=== PATIENT | female | born 1975 | race African-American/Black ===

== ENCOUNTER 2022-02-07 04:35 | Day surgery (SDC) | payer BC, OTHER ==
[2022-02-06 10:30] VITALS: BMI 37.5
[2022-02-07] MEDS ORDERED: PROPOFOL 40 ML ONE (10:18)
[2022-02-07] MEDS ORDERED: MIDAZOLAM HCL 2 MG/2 ML SINGLE DOSE VIAL ONE (10:18)
[2022-02-07] MEDS ORDERED: oxyCODONE HCL 5 MG TABLET PO PRN ×2 (11:23→11:50)
[2022-02-07] MEDS ORDERED: ONDANSETRON 4 MG/2 ML VIAL IVPUSH PRN ×2 (11:23→11:50)
[2022-02-07] MEDS ORDERED: IBUPROFEN 800 MG/8 ML IJ IVPB PRN (11:50)
[2022-02-07] MEDS ORDERED: IBUPROFEN 600 MG TABLET (FP) PO PRN (11:50)
[2022-02-07] MEDS ORDERED: ELECTROLYTE-148 SOLN 1,000 ML IV SCH (12:00)
[2022-02-07 12:30] VITALS: RESP 20
[2022-02-07 13:21] VITALS: BP 140/80; PULSE 78; TEMP 98
== END 2022-02-07 13:21 | disposition home or self-care (01) ==
LOC: JASU-SURG 04:35
PROVIDERS: ATTEND Obstetrics & Gynecology
PROC: 0UDB7ZZ Extraction of Endometrium, Via Natural or Artificial Opening (ICD-10-PCS; 2022-02-07)
PROC: 0UB98ZX Excision of Uterus, Via Natural or Artificial Opening Endoscopic, Diagnostic (ICD-10-PCS; principal; 2022-02-07 09:00)
DX: N92.0 Excessive and frequent menstruation with regular cycle (principal); N84.0 Polyp of corpus uteri
CPT/HCPCS: 81025; 88305-TC; 94760